=== PATIENT | male | born 1980 | race Caucasian/White ===

== ENCOUNTER 2019-08-27 12:21 | Outpatient (RCR) | payer OTHER, SELFPAY | END 2019-09-09 23:59 | LOC: NS 12:21 | PROVIDERS: PCP Family Medicine; Visit Provider Family Medicine | DX: Z71.3 Dietary counseling and surveillance (principal); R73.01 Impaired fasting glucose; E78.2 Mixed hyperlipidemia | CPT/HCPCS: 97802 ==

== ENCOUNTER 2019-10-08 12:30 | Outpatient (RCR) | payer OTHER, SELFPAY | END 2019-10-08 23:59 | disposition home or self-care (01) | LOC: NS 12:30 | PROVIDERS: PCP Family Medicine; Visit Provider Family Medicine | DX: Z71.3 Dietary counseling and surveillance (principal); R73.01 Impaired fasting glucose; E78.2 Mixed hyperlipidemia | CPT/HCPCS: 97803 ==

== ENCOUNTER 2024-05-26 12:29 | Emergency (ER) | payer OTHER, SELFPAY ==
[2024-05-26 12:29] VITALS: BP 144/92; PULSE 60; RESP 16; TEMP 36.2; O2SAT 100; BMI 31.9
[2024-05-26 13:34] VITALS: PULSE 61; RESP 14; O2SAT 98
[2024-05-26 14:00] VITALS: PULSE 65; RESP 17; O2SAT 99
--- NOTE | 2024-05-26 14:00 | RAD_ITS ---
STUDY: X-RAY CHEST REASON FOR EXAM: Male, 43 years old. Chest pain. TECHNIQUE: Frontal and lateral views of the chest. COMPARISON: None. FINDINGS: The lungs are clear and expanded. There is no demonstrated pleural abnormality. Normal size heart. Normal mediastinum and verito. Normal visualized pulmonary arteries. Normal visualized aortic arch and descending thoracic aorta. Normal visualized thoracic spine. Normal visualized ribs, clavicles, and shoulders. No abnormality of the visualized soft tissue structures of the upper abdomen. RAD/Chest PA and Lateral IMPRESSION: No active or acute cardiopulmonary disease. Electronically Signed: Eriberto Toro MD at 14:12 EDT ,
--- NOTE | 2024-05-26 14:06 | ED.VIS.CHEST ---
HPI History of Present Illness Chief Complaint: Chest Pain Informant: patient Narrative Narrative: 43-year-old healthy male has been having intermittent left-sided chest pain for the last couple weeks. Today it is more persistent last several hours, since he woke up this morning around 5 hours ago, and he has had some mild discomfort in his left upper extremity. He states on his way to work he started feeling lightheaded and that has been persistent as well. No palpitations. It is mild, he does not feel like he is near syncopal, but he was concerned about all of this together. He has had no dyspnea, exertional discomfort, pleuritic discomfort, orthopnea, leg edema or leg pain. No recent risk factors for DVT or PE and no history of 1 in the past. He is a non-smoker. He was more concerned about this being his heart. His parents both but for noncardiac-related issues, 1 from COVID & 1 from a car accident but no history in the family of heart disease in a primary relative that he knows of. PE Risk Factors: Negative for Recent Travel/Surgery, Recent Immobilization, Prior DVT or PE, Cancer or OCP + Smoking + >/=35 PFSH PFSH Medical History no medical history no medical history Allergy/AdvReac Type Severity Reaction Status Date / Time onion AdvReac Mild HEADACHE Verified 05/26/24 12:33 Social History (Updated 05/26/24 @ 14:[address] John Mcfarlane MD) Smoking Status: Never smoker substance use type: does not use ROS ROS ED Constitutional Constitutional ED: Denies chills or fever(s) Eyes Eyes: Denies change in vision or diplopia ENT ENT ED: Denies rhinorrhea or sore throat Cardiovascular Cardiovascular: Reports as per HPI, chest pain and lightheadedness; Denies palpitations or syncope Respiratory/Chest Respiratory/Chest: Denies cough or dyspnea Gastrointestinal Gastrointestinal: Denies abdominal pain, diarrhea, nausea or vomiting Genitourinary Genitourinary ED: Denies dysuria or hematuria Musculoskeletal Musculoskeletal: Denies back pain or neck pain Integumentary Denies abscess or rash Neurologic Neurologic: Denies headache(s), paresthesias or weakness Psychiatric Psychiatric: Denies suicidal thoughts EXAM Physical Exam Const Vital Signs: 05/26/24 12:29 05/26/24 13:34 05/26/24 13:34 Temperature 97.1 F L Temperature Source Temporal Pulse Rate 60 61 Respiratory Rate 16 14 Respiratory Effort Normal Blood Pressure 144/92 H Blood Pressure Mean 109 Pulse Ox 100 98 Oxygen Delivery Method Room Air 05/26/24 13:54 05/26/24 14:00 05/26/24 15:07 Temperature Temperature Source Pulse Rate 65 68 Respiratory Rate 17 18 Respiratory Effort Blood Pressure Blood Pressure Mean Pulse Ox 99 99 Oxygen Delivery Method Room Air Room Air Room Air Positive well nourished and well developed General Appearance ED: well developed and NAD HEENT Reports moist mucous membranes normocephalic and atraumatic Eyes PERRL and EOMs intact bilaterally Neck full ROM and supple Resp normal respiratory effort and clear to auscultation bilaterally Cardio regular rate, regular rhythm and no murmurs GI non-tender and non-distended Auscultation: normoactive bowel sounds Palpation: soft Back/Spine no CVA tenderness General Back: other FROM Extremity normal to inspection General Extremety ED: Negative for edema, pulses abnormal or tenderness General Extremity: Negative for edema or pulses abnormal Neuro oriented x3, CN's II-XII intact bilaterally and no sensory deficits noted Sensorium / Orientation: awake and alert Motor Exam: strength 5/5 throughout Skin no rashes or lesions noted and no wounds Heart Score History: Moderately Suspicious ECG: Nonspecific Repolarization Age: </= 45 years Risk Factors: No Risk Factors Troponin: </= Normal Limit Score: 2 MDM MDM MDM Narrative Medical decision making narrative: Given that his EKG shows nonspecific T wave inversions, it is possible that the repolarization abnormality is acute and this is cardiac, but given his age and health, esophageal etiologies are also in the differential so while working him up he was given a GI cocktail. He said after this that his discomfort was a lot better, seemingly from the medication. 2 view chest x-ray on my interpretation normal. Although his EKG is abnormal and I do not have an old one, his troponin returns at 3. This heavily argues against acute coronary syndrome right now especially since he has had discomfort all morning, and he has been having it episodically for the last couple weeks. At this time I think would be reasonable to have him follow-up with his doctor as an outpatient, especially given his low heart score he is comfortable with that plan and will do an H2 ritesh or PPI for the next 2 weeks to see if that helps anything. We did discuss other possibilities such as hiatal hernia, reflux, esophageal spasm all of which could be the case here. Lab Data Attestation: I reviewed the patient's lab results. Labs: Laboratory Results - last 24 hr 05/26/24 13:10 WBC 10.9 RBC 4.99 Hgb 15.5 Hct 46.2 MCV 92.6 MCH 31.1 MCHC 33.5 RDW Std Deviation 42.0 RDW Coeff of Arabella 12.2 Plt Count 273 MPV 10.3 Immature Gran % (Auto) 0.500 Neut % (Auto) 67.2 Lymph % (Auto) 24.0 [place] % (Auto) 7.3 Eos % (Auto) 0.6 Baso % (Auto) 0.4 Absolute Neuts (auto) 7.3 Absolute Lymphs (auto) 2.60 Nucleated RBC % 0 Sodium 137 Potassium 3.8 Chloride 103 Carbon Dioxide 28.0 Anion Gap 6 BUN 11 Creatinine 0.78 Estim Creat Clear Calc 129.49 Est GFR (MDRD) Af Amer 139 Est GFR (MDRD) Non-Af 115 BUN/Creatinine Ratio 14.0 Glucose 108 H Calcium 9.2 Troponin I High Sens 3 Radiography Diagnostic Testing: Clinical Impression(s) from Imaging Studies Chest X-Ray 05/26/24 14:00 IMPRESSION: No active or acute cardiopulmonary disease. Electronically Signed: Eriberto Toro MD at 14:12 EDT , Rhythm Strip Rhythm Strip: Sinus Rhythm Rate: 62 Ectopy: None EKG Initial EKG: Attestation: I personally reviewed and interpreted this EKG as follows: Interpretation: Sinus Rhythm, No Acute Injury Pattern and Inverted T-Waves (V1-4) Comments: no [place] or STD Prior: No Prior Discharge Plan Triage Chief Complaint: Chest Pain ED Provider: John Mcfarlane Dx/Rx/DC Orders Clinical Impression: Chest pain Instructions: ED Chest Pain, Noncardiac Primary Care Provider: Praveen Luciano Referrals: Praveen Luciano DO [Primary Care Provider] - 1-2 Weeks Activity Restrictions/Additional Instructions: Take daily Pepcid or Prilosec or Prevacid or Nexium for 2 weeks to see if it helps her symptoms Print Language: Polish Disposition Disposition: Home, Self Care
[2024-05-26 14:09] LABS: Absolute Neutrophil Count 7.3 X10^3/uL (2.0-7.7); Basophil# 0.04 X10^3/uL; Basophil% 0.4 % (0-1); Eosinophil# 0.06 X10^3/uL; Eosinophils% 0.6 % (0-5); Hematocrit 46.2 % (40-54); Hemoglobin 15.5 g/dL (13.0-16.5); Mean Corp Hgb Conc 33.5 g/dL (32-36); Mean Corpuscular Hgb 31.1 pg (27.0-32.0); Mean Corpuscular Volume 92.6 fL (80-94); Mean Platelet Vol. 10.3 fl (6.2-12.0); Monocyte# 0.79 X10^3/uL; Monocyte% 7.3 % (0-10); NRBC Flagged by Analyzer 0 % (0-5); Neutrophil # 7.31 X10^3/uL (2.7-7.7); Neutrophil % 67.2 % (47-70); Platelet Count 273 K/mm3 (150-450); RBC Distribution Width CV 12.2 % (11.6-14.6); Red Blood Count 4.99 M/mm3 (4.6-6.2); White Blood Count 10.9 K/mm3 (4.4-11.0)
[2024-05-26] MEDS: Lidocaine 2% Viscous15 ML UDC 15 ML PO (14:14)
[2024-05-26] MEDS: Mag /Aluminum/Simeth WCH UDC 30 ML ORAL.SUSP PO (14:14)
[2024-05-26 14:26] LABS: Anion Gap 6 (5-15); BUN 11 mg/dL (7-18); Calcium,Total 9.2 mg/dL (8.5-10.1); Chloride 103 mmol/L (98-107); Creatinine, Serum 0.78 mg/dL (0.70-1.30); EST Glomerular Filtration Rate 115 mL/min (>60); Est Glom Filt Rate - Afr Amer 139 mL/min (>60); Estimated Creatinine Clearance 129.49 ml/min; Glucose 108 mg/dL (74-106); Potassium 3.8 mmol/L (3.5-5.1); Sodium Level 137 mmol/L (136-145); Troponin-I HS 3 pg/mL (3.0-78.0)
[2024-05-26 15:07] VITALS: PULSE 68; RESP 18; O2SAT 99
[2024-05-26 15:27] VITALS: BP 177/67; PULSE 64; RESP 17; TEMP 36.8; O2SAT 99
== END 2024-05-26 15:34 | disposition home or self-care (01) ==
PROVIDERS: Emergency Provider Emergency Medicine; PCP Family Medicine; Visit Provider Emergency Medicine
DX: R07.9 Chest pain, unspecified (principal); R42 Dizziness and giddiness; R94.31 Abnormal electrocardiogram [ECG] [EKG]
CPT/HCPCS: 71046; 80048; 84484; 85025; 93005; 99284; A4216